=== PATIENT | female | born 1990 ===

== ENCOUNTER 2021-09-11 11:45 | Emergency (ER) | payer BC ==
[2021-09-11] MEDS ORDERED: Sodium Chloride 0.9% 10 ML Syringe FLUSH PRN (12:11)
[2021-09-11] MEDS ORDERED: Sodium Chloride 0.9% 2.5 ML Syringe FLUSH PRN (12:11)
[2021-09-11] MEDS ORDERED: Lactated Ringers 1,000 ML IV SCH ×2 (12:15)
[2021-09-11] MEDS ORDERED: Ondansetron 4 MG/2 ML SDV IVPUSH ONE (12:19)
[2021-09-11 12:31] LABS: BLOOD UREA NITROGEN,BUN 11 mg/dL (7.0-18.0); CARBON DIOXIDE,CO2 21.8 mmol/L (21.0-32.0); CHLORIDE,CL 101 mmol/L (98-107); GLUCOSE RANDOM 131 mg/dL (74-106); LIPASE 83 U/L (73-393); POTASSIUM,K 4.2 mmol/L (3.5-5.1); SODIUM,NA 139 mmol/L (136-145)
[2021-09-11 13:16] LABS: CORONAVIRUS COVID-19 NAA NEGATIVE (NEGATIVE); INFLUENZA A NAA POSITIVE (NEGATIVE); INFLUENZA B NAA NEGATIVE (NEGATIVE)
[2021-09-11] MEDS ORDERED: Lactated Ringers 1,000 ML IV ONE (13:48)
== END 2021-09-11 14:42 | disposition home or self-care (01) ==
LOC: MW.ED 11:45
DX: A05.9 Bacterial foodborne intoxication, unspecified (principal); Z88.0 Allergy status to penicillin; Z20.822 Contact with and (suspected) exposure to COVID-19; Z79.899 Other long term (current) drug therapy
CPT/HCPCS: 0240U; 36415; 80053; 83690; 83735; 85025; 96374; 99284; J2405; J7120